=== PATIENT | female | born 1945 | race American Indian/Alaskan Native ===

== ENCOUNTER 2021-01-09 20:11 | Emergency (ER) | payer MEDICARE, MEDICAID ==
--- NOTE | 2021-01-09 21:13 | XRay Report ---
CHEST 2 VIEWS INDICATION / CLINICAL INFORMATION: cough. COMPARISON: 06/28/2010 FINDINGS: SUPPORT DEVICES: Right-sided port device with central venous catheter tip overlying the proximal righ t atrium. HEART / MEDIASTINUM: Opacity overlying the right hilar region with retraction of the right mainstem b ronchus and trachea towards the right upper lung. Cardiac silhouette demonstrates no significant abno rmality. LUNGS / PLEURA: 3-4 cm nodular mass overlying the right middle lobe. Left lung appears clear. No evid ence of acute airspace disease. No pneumothorax. ADDITIONAL FINDINGS: No significant additional findings. IMPRESSION: 1. 3-4 cm nodular mass in the right middle lobe concerning for neoplasm given this patient's provided clinical history. 2. Right hilar opacity and retraction of the distal trachea/right mainstem bronchus. This could be se condary to hilar metastatic disease or prior treatment. Consider further evaluation with CT for the a forementioned abnormalities. 3. No evidence of acute airspace disease. Signer Name: Elliot Gerber MD Signed: 01/09/2021 9:08 PM Workstation Name: [id number]
[2021-01-09] MEDS ORDERED: ACETAMINOPHEN 325 MG TAB PO ONE (23:52)
--- NOTE | 2021-01-09 23:57 | Emergency Department Report ---
ED General Adult HPI - General Chief complaint: Upper Respiratory Infection Stated complaint: COUGH; HURTS WHEN SHE COUGHS; FALL PUI?: No Time Seen by Provider: 01/09/21 23:34 Source: patient, RN notes reviewed Mode of arrival: Ambulatory Limitations: No Limitations - History of Present Illness Initial comments: The patient was evaluated in the emergency department for symptoms described in the history of present illness. He/she was evaluated in the context of the global COVID-19 pandemic, which necessitated consideration that the patient might be at risk for infection with the virus that causes COVID-19. Institutional protocols and algorithms that pertain to the evaluation of patients at risk for COVID-19 are in a state of rapid change based on information released by regulatory bodies including the CDC and federal and state organizations. These policies and algorithms were followed during the patient's care in the emergency department. Please note that these policies, procedures and recommendations changed on a rapid basis. Primary care doctor: Jaylyn Torres Oncology: [facility] – [place] Past medical history: Hypertension, arthritis, lung cancer diagnosed 5 years ago, has completed treatment, not currently on chemotherapy, radiation therapy, reports having had a PET scan with her outpatient oncologist a few weeks ago, which patient reports was "negative." The patient is a 75-year-old female. She is not known to myself previously. She presents to the ER today with a complaint of seeking reassurance to make sure she does not have pneumonia. The patient has been having a dry cough for the past few weeks. She denies headache, neck pain, new/different shortness of breath, vomiting, diaphoresis. The patient also denies fever, loss of taste and smell, and has received her first round of the Pfizer Covid vaccination within the past 24 hours. She has chest wall pain with coughing. Incidentally, patient reports having had a mechanical fall at home a few weeks ago, did not hit her head, saw her primary care doctor as an outpatient, had outpatient x-rays of her back which were "negative", and she was referred to outpatient orthopedics for "pain shots." The patient was prescribed "cough syrup" by her oncologist. -: week(s) Location: chest (Chest wall pain with cough), back (Lower back pain status post fall) Radiation: non-radiation Quality: aching Consistency: intermittent Improves with: rest Worsens with: movement ED Review of Systems ROS: Stated complaint: COUGH; HURTS WHEN SHE COUGHS; FALL Other details as noted in HPI Constitutional: other (Denies loss of taste and smell). denies: fever, malaise, weakness ENT: denies: epistaxis Respiratory: cough. denies: shortness of breath Cardiovascular: other (Chest wall pain with cough) Gastrointestinal: denies: nausea, vomiting, hematemesis, melena, hematochezia Genitourinary: denies: dysuria Musculoskeletal: back pain, arthralgia, myalgia Neurological: denies: weakness, numbness, paresthesias Hematological/Lymphatic: denies: easy bleeding ED Past Medical Hx - Past Medical History Previous Medical History?: Yes Hx Hypertension: Yes Hx of Cancer: Yes (lung cancer) - Surgical History Past Surgical History?: Yes Hx Breast Surgery: Yes (lumps removed,) Additional Surgical History: Colon hysterectomy, gall bladder, wrist surgery. - Social History Smoking Status: Never Smoker Substance Use Type: None ED Physical Exam - General Limitations: No Limitations General appearance: alert, in no apparent distress - Head Head exam: Present: atraumatic, normocephalic - Eye Eye exam: Present: normal appearance, EOMI. Absent: nystagmus - ENT ENT exam: Present: normal exam, normal orophraynx, mucous membranes moist, normal external ear exam - Neck Neck exam: Present: normal inspection, full ROM. Absent: tenderness, meningismus - Respiratory Respiratory exam: Present: normal lung sounds bilaterally, chest wall tenderness. Absent: respiratory distress, wheezes, rales, rhonchi, stridor - Cardiovascular Cardiovascular Exam: Present: regular rate, normal rhythm, normal heart sounds. Absent: bradycardia, tachycardia, irregular rhythm, systolic murmur, diastolic murmur, rubs, gallop - GI/Abdominal GI/Abdominal exam: Present: soft. Absent: distended, tenderness, guarding, rebound, rigid, pulsatile mass - Extremities Exam Extremities exam: Present: normal inspection, full ROM, other (2+ pulses noted in the bilateral upper and lower extremities. There is no palpable cord. negative Homans sign. Muscular compartments are soft. The pelvis is stable.). Absent: pedal edema, calf tenderness - Back Exam Back exam: Present: normal inspection, paraspinal tenderness. Absent: tenderness, CVA tenderness (R), CVA tenderness (L), muscle spasm, vertebral tenderness - Neurological Exam Neurological exam: Present: alert, oriented X3, other (No facial droop. Tongue midline. Extraocular movements intact bilaterally. Facial sensation intact to light touch in V1, V2, V3 distribution bilaterally. 5 and a 5 strength in 4 extremities. Sensation intact to light touch in 4 extremities.). Absent: motor sensory deficit - Psychiatric Psychiatric exam: Present: normal affect, normal mood - Skin Skin exam: Present: warm, dry, intact, normal color. Absent: rash ED Course Vital Signs 01/09/21 20:20 Temperature 99.5 F Pulse Rate 103 H Respiratory 18 Rate Blood Pressure 133/93 O2 Sat by Pulse 96 Oximetry - Pulse Oximetry Interpretation Digit-Finger Initial Pulse Oximetry Readin O2 Sat by Pulse Oximetry: 99 Actions Taken: none ED Medical Decision Making - Lab Data Vital Signs 01/09/21 20:20 Temperature 99.5 F Pulse Rate 103 H Respiratory 18 Rate Blood Pressure 133/93 O2 Sat by Pulse 96 Oximetry - EKG Data -: EKG Interpreted by Or EKG shows normal: sinus rhythm Rate: normal - EKG Data When compared to previous EKG there are: previous EKG unavailable 01/09/21 23:59 There is no prior EKG available for interpretation. Time of interpretation: 23: 57 Sinus rhythm, left axis deviation, 78 bpm. Left anterior fascicular block. Intervals within normal limits. This is not a STEMI. - Radiology Data Radiology results: report reviewed, image reviewed CHEST 2 VIEWS INDICATION / CLINICAL INFORMATION: cough. COMPARISON: 06/28/2010 FINDINGS: SUPPORT DEVICES: Right-sided port device with central venous catheter tip overlying the proximal right atrium. HEART / MEDIASTINUM: Opacity overlying the right hilar region with retraction of the right mainstem bronchus and trachea towards the right upper lung. Cardiac silhouette demonstrates no significant abnormality. LUNGS / PLEURA: 3-4 cm nodular mass overlying the right middle lobe. Left lung appears clear. No evidence of acute airspace disease. No pneumothorax. ADDITIONAL FINDINGS: No significant additional findings. IMPRESSION: 1. 3-4 cm nodular mass in the right middle lobe concerning for neoplasm given this patient's provided clinical history. 2. Right hilar opacity and retraction of the distal trachea/right mainstem bronchus. This could be secondary to hilar metastatic disease or prior treatment. Consider further evaluation with CT for the aforementioned abnormalities. 3. No evidence of acute airspace disease. Signer Name: Elliot Gerber MD Signed: 01/09/2021 8:08 PM Workstation Name: [id number] - Medical Decision Making Differential diagnosis, including but not limited to: Costochondritis, pneumonia, lung cancer, general medical evaluation, history of fall, sequelae of fall Assessment and plan: 75-year-old female, with resolved tachycardia, who is not c urrently tachycardic, tachypneic or hypoxic, who in spite of her history of lung cancer which we appreciate, denies acute DVT and pulmonary embolism risk factors, who presents to the ER with a complaint of cough for a few weeks, essentially seeking reassurance that she does not have pneumonia. She denies loss of taste and smell, reportedly got her Covid vaccination within the past 24 hours, denies other typical Covid symptomatology. X-ray was obtained prior to my personal evaluation, does not demonstrate signs of pneumonia, however, it does demonstrate signs of pulmonary malignancy. Patient counseled on need to follow-up with outpatient primary care doctor or her oncologist for further outpatient evaluation and management, to ascertain whether or not her pulmonary malignancy has returned, to see if she requires treatment. She had a mechanical fall a few weeks ago, has already seen her primary care doctor for this, reportedly had negative outpatient x-rays in the clinic, and is going to follow- up with an orthopedist. Patient counseled on the natural history of falls, mechanical back pain, and costochondritis. She is currently afebrile, with reassuring vital signs, appears to be resting comfortably, and has no indication of acute neurologic deficit, or an acute decompensated medical condition. EKG reviewed and appreciated. Is not consistent with a STEMI. Patient medically suitable at this time for outpatient follow-up. Return precautions are reviewed tachycardia is resolved at the time of discharge, resting heart rate 78 bpm. Critical care attestation.: If time is entered above; I have spent that time in minutes in the direct care of this critically ill patient, excluding procedure time. ED Disposition Clinical Impression: Chest wall pain, Cough, History of lung cancer, History of fall, Encounter for medical screening examination Lower back pain Qualifiers: Chronicity: chronic Back pain laterality: bilateral Sciatica presence: without sciatica Qualified Code(s): M54.5 - Low back pain; G89.29 - Other chronic pain Disposition: DC-01 TO HOME OR SELFCARE Is pt being admited?: No Does the pt Need Aspirin: No Condition: Good Instructions: Chest Pain (ED) Additional Instructions: Rest, avoid heavy lifting, and strenuous physical activities. Patient may take ibuprofen, 400 mg by mouth, with food, every 6 hours as needed for pain, alternating with acetaminophen, 500 mg by mouth, every 4-6 hours as needed for pain, maximum daily dose of acetaminophen/Tylenol to not exceed 3 g per 24 hours. Alternate ice packs and heat packs as needed to areas of physical pain on body. Follow-up with your primary care doctor or oncologist within the next week. X- ray of the chest suggested the presence of a lung cancer/neoplasm. It is very important to follow-up with your outpatient primary care doctor or oncologist to exclude recurrent cancer, tumor, malignancy. Pain typically gets worse before gets better after mechanical fall. Therefore, please follow-up with your outpatient primary care doctor or outpatient orthopedist within the next week. Patient may benefit from physical therapy, rest, ice, compression, elevation. Please return to the emergency room right away with new pain, worsened pain, migration of pain, projectile vomiting, change in mental status, confusion, inability tolerate liquid feeds, new, worsened or different symptoms not present on the initial emergency room evaluation. Referrals: [facility] [Other] - 3-5 Days efra, cancer centers of [Other] - 3-5 Days
[2021-01-10] VITALS: BP 127/66
== END 2021-01-10 00:11 | disposition home or self-care (01) ==
LOC: ED 20:11
DX: R07.89 Other chest pain (principal); M54.5 Low back pain; R05 Cough; I10 Essential (primary) hypertension; Z00.00 Encounter for general adult medical examination without abnormal findings; Z85.118 Personal history of other malignant neoplasm of bronchus and lung; Z91.81 History of falling; Z98.890 Other specified postprocedural states
CPT/HCPCS: 71046; 93005

== ENCOUNTER 2021-07-26 05:44 | Inpatient (IN) | payer MEDICARE ==
--- NOTE | 2021-07-26 07:24 | Emergency Department Report ---
Blank Doc - Documentation Documentation: This is a 75-year-old female that presents with chest tightness and shortness of breath. 1- This is a initial triage assessment/medical screening only. Full assessment and work-up will be completed once the patient is in proper hospital gown, ED bed and in a private room setting. This initial assessment/diagnostic orders/clinical plan/ treatment(s) is/are subject to change based on pt's health status, clinical progression and re-assessment by fellow clinical providers in the ED. Further treatment and workup at subsequent clinical providers discretion. Patient/guardians urged not to elope from ED as their condition may be serious if not clinically assessed and managed. 2-cardiac work-up The patient was evaluated in the emergency department for symptoms described in the history of present illness. He/she was evaluated in the context of the global COVID-19 pandemic, which necessitated consideration that the patient might be at risk for infection with the virus that causes COVID-19. Institutional protocols and algorithms that pertain to the evaluation of humberto ents at risk for COVID-19 are in a state of rapid change based on information released by regulatory bodies including the CDC and federal and state organizations. These policies and algorithms were followed during the patient's care in the emergency department. Please note that these policies, procedures and recommendations changed on a rapid basis.
[2021-07-26 07:38] LABS: Basophils % (Auto) 0.2 % (0.0-1.8); Hematocrit 41.2 % (30.3-42.9); Hemoglobin 13.6 gm/dl (10.1-14.3); Lymphocytes # (Auto) 1.1 K/mm3 (1.2-5.4); Lymphocytes % (Auto) 9.9 % (13.4-35.0); Mean Corpuscular HGB Conc 33 % (30-34); Mean Corpuscular Volume 84 fl (79-97); Monocytes # (Auto) 0.5 K/mm3 (0.0-0.8); Monocytes % (Auto) 4.4 % (0.0-7.3); Platelet Count 257 K/mm3 (140-440); Red Blood Count 4.92 M/mm3 (3.65-5.03); Red Cell Distribution Width 18.4 % (13.2-15.2)
[2021-07-26 07:49] LABS: INR 1.29 (0.87-1.13); Partial Thromboplastin Time 31.4 Sec. (24.2-36.6)
[2021-07-26 08:02] LABS: Alanine Aminotransferase 11 units/L (7-56); Albumin 3.2 g/dL (3.9-5); Blood Urea Nitrogen 20 mg/dL (7-17); Calcium 9.3 mg/dL (8.4-10.2); Hemolysis Index 11
[2021-07-26 08:04] LABS: BUN/Creatinine Ratio 33
--- NOTE | 2021-07-26 08:41 | XRay Report ---
CHEST 2 VIEWS INDICATION: Chest Pain. COMPARISON: 01/09/2021 FINDINGS: Support devices: Right [id number] remains in adequate position. Heart: Partial right pneumonectomy changes are suspected. Right suprahilar opacity and right middle l obe opacity appear unchanged. This could represent mass and adenopathy. The left lung remains general ly clear. No large pleural effusion or pneumothorax. Lungs/pleura: No acute air space or interstitial disease. No pneumothorax. Additional findings: None. IMPRESSION: No overwhelming change is suggested since 01/09/2021 exam. Partial right pneumonectomy changes with rig ht suprahilar and right middle lobe opacities are again noted and not significantly changed. If furth er evaluation is needed, CT chest with contrast could be obtained. Signer Name: Terry West Jr, MD Signed: 07/26/2021 8:37 AM Workstation Name: [id number]
--- NOTE | 2021-07-26 10:35 | Cat Scan Report ---
CTA CHEST WITH CONTRAST INDICATION : SOB, CANCER. TECHNIQUE: Axial imaging performed through the chest, with contrast bolus timing set to maximize opa cification of the pulmonary arteries. Sagittal and coronal reformatted images. 3-plane MIP reformatte d images were obtained. All CT scans at this location are performed using CT dose reduction for ALAR A by means of automated exposure control. Omnipaque 350 100 mL of intravenous contrast administered. COMPARISON: No previous CT chest. Correlation is made with recent chest x-rays FINDINGS: Bolus: Contrast bolus timing is adequate. PTE: No filling defect is present to suggest PTE. Mediastinum: Heart size is within normal limits. There is mild dilatation of the ascending aorta up to 3.8 cm. No obvious pathologic mediastinal adenopathy. Lungs: Partial right pneumonectomy changes are suspected, correlate with history. There is a necroti c appearing mass in the right midlung measuring up to 4.4 cm in diameter. There are also numerous tin y and small nodular densities scattered throughout both lungs consistent with metastatic disease. The re is moderate peribronchial nodularity in the right lung which probably represents lymphangitic spre ad of cancer. Opacification/consolidation in the right suprahilar region measuring up to 5.5 x 3.2 cm in axial plane probably represents atelectasis. Similar appearing area of opacification in the media l right lower lobe measures 5.2 x 4.0 cm. Small right pleural effusion layers posteriorly. No pneumot horax. Bones: Kyphoplasty changes are identified at T12. The remaining bony structures are intact. No obvio us suspicious bony lesion. Upper abdomen: Limited imaging of the upper abdomen shows nothing acute. IMPRESSION: No pulmonary embolus is detected. Partial right pneumonectomy changes are suspected. A 4.4 cm necrotic appearing mass is identified in the right midlung. There are also numerous bilateral nodular densities scattered throughout both lung s consistent with metastatic disease as described. Focal areas of atelectasis or infiltrate in the right upper lobe and right lower lobe as described. Small right pleural effusion. Signer Name: Terry West Jr, MD Signed: 07/26/2021 10:30 AM Workstation Name: [id number]
--- NOTE | 2021-07-26 10:55 | Emergency Department Report ---
ED Shortness of Breath HPI - General Chief Complaint: Dyspnea/Respdistress Stated Complaint: SEE Time Seen by Provider: 07/26/21 07:18 Source: patient Mode of arrival: Ambulatory Limitations: No Limitations - History of Present Illness Initial Comments: 75-year-old female with a past medical history of metastatic cancer and hypertension presents to the hospital with complaints of shortness of breath x2 months. Patient states she has good and bad days. She had a bad spell this morning but feels fine currently. O2 saturation 100% on room air. Patient has a history of colon cancer with mets and family is trying to set her up with hospice as per triage. Patient denies any pain currently. Patient states she receives chemotherapy treatment at home. She is alert and oriented x3. She ambulates with a walker at her baseline Daughter Yony can be reached at [phone] - Related Data Allergies Allergy/AdvReac Type Severity Reaction Status Date / Time No Known Allergies Allergy Unverified 07/26/21 05:55 ED Review of Systems ROS: Stated complaint: SEE Other details as noted in HPI Comment: All other systems reviewed and negative ED Past Medical Hx - Past Medical History Previous Medical History?: Yes Hx Hypertension: Yes Hx of Cancer: Yes - Surgical History Past Surgical History?: Yes Hx Breast Surgery: Yes (lumps removed,) Additional Surgical History: Colon hysterectomy, gall bladder, wrist surgery. - Social History Smoking Status: Unknown if ever smoked ED Physical Exam - General Limitations: No Limitations - Other Other exam information: General: No acute distress Head: Atraumatic Eyes: normal appearance ENT: Moist mucous membranes Neck: Normal appearance, no midline tenderness Chest: Clear to auscultation bilaterally CV: Regular rate and rhythm Abdomen: Soft, normal bowel sounds, nontender, nondistended, no rebound or guarding Back: Normal inspection Extremity: Normal inspection, full range of motion, no calf tenderness or leg edema Neuro: Alert O x 3, no facial asymmetry, speech clear, no gross motor sensory deficit Psych: Appropriate behavior Skin: No rash ED Course Vital Signs 07/26/21 07/26/21 07/26/21 05:57 09:07 09:15 Temperature 97.3 F L Pulse Rate 88 89 88 Respiratory 18 21 20 Rate Blood Pressure 100/67 125/84 O2 Sat by Pulse 100 98 99 Oximetry 07/26/21 07/26/21 07/26/21 09:23 09:31 09:45 Temperature Pulse Rate 106 H 85 Respiratory 18 15 18 Rate Blood Pressure 125/84 119/85 O2 Sat by Pulse 99 99 100 Oximetry 07/26/21 07/26/21 07/26/21 10:00 10:15 10:31 Temperature Pulse Rate 92 H 83 82 Respiratory 19 20 18 Rate Blood Pressure 119/85 119/85 119/85 O2 Sat by Pulse 100 100 100 Oximetry 07/26/21 07/26/21 07/26/21 10:45 11:01 11:15 Temperature Pulse Rate 82 80 96 H Respiratory 17 17 15 Rate Blood Pressure 107/77 107/77 109/78 O2 Sat by Pulse 100 100 100 Oximetry 07/26/21 11:31 Temperature Pulse Rate 88 Respiratory 14 Rate Blood Pressure 109/78 O2 Sat by Pulse 100 Oximetry - Reevaluation(s) Reevaluation #1: 07/26/21 11:01 Case discussed with patient's daughter Ethel. She states patient is still rec eiving chemotherapy every 2 weeks and daily pills at home 3 in a.m. and 3 in the PM. Patient has been short of breath the last 2 months but this morning she got extremely winded when she walks to the bathroom. Family is having difficulty caring for the patient and have to carry her up and down the stairs due decreasing physical ability and shortness of breath. She is not sure that patient requires hospice but is also inquiring about alf placement for care assistance. Patient has an appointment with her development professional in [place] today scheduled for 1 PM due to respiratory symptoms. Patient apparently has an appointment development professional today because she has had the Holter monitor because of some abnormality that was noted with a heart. Patient's development professional is located in [place] 07/26/21 11:24 Daughter updated that patient will be admitted to the hospital. Denies a previous history of A. fib 07/26/21 11:40 - Consultations Consultation #1: 07/26/21 11:59 Patient seen at the bedside by cardiology Dr. Oliveira will start pt on beta- shabbir, Eliquis. See consult note ED Medical Decision Making - Lab Data Result diagrams: 07/26/21 07:24 07/26/21 07:24 Lab Results 07/26/21 07/26/21 07/26/21 Range/Units 07:24 07:24 07:24 WBC 11.3 H (4.5-11.0) K/mm3 RBC 4.92 (3.65-5.03) M/mm3 Hgb 13.6 (10.1-14.3) gm/dl Hct 41.2 (30.3-42.9) % MCV 84 (79-97) fl MCH 28 (28-32) pg MCHC 33 (30-34) % RDW 18.4 H (13.2-15.2) % Plt Count 257 (140-440) K/mm3 Lymph % (Auto) 9.9 L (13.4-35.0) % [place] % (Auto) 4.4 (0.0-7.3) % Eos % (Auto) 0.0 (0.0-4.3) % Baso % (Auto) 0.2 (0.0-1.8) % Lymph # (Auto) 1.1 L (1.2-5.4) K/mm3 [place] # (Auto) 0.5 (0.0-0.8) K/mm3 Eos # (Auto) 0.0 (0.0-0.4) K/mm3 Baso # (Auto) 0.0 (0.0-0.1) K/mm3 Seg Neutrophils % 85.5 H (40.0-70.0) % Seg Neutrophils # 9.6 H (1.8-7.7) K/mm3 PT 16.6 H (12.2-14.9) Sec. INR 1.29 H (0.87-1.13) APTT 31.4 (24.2-36.6) Sec. Sodium 131 L (137-145) mmol/L Potassium 3.4 L (3.6-5.0) mmol/L Chloride 90.1 L (98-107) mmol/L Carbon Dioxide 22 (22-30) mmol/L Anion Gap 22 mmol/L BUN 20 H (7-17) mg/dL Creatinine 0.6 (0.6-1.2) mg/dL Estimated GFR > 60 ml/min BUN/Creatinine Ratio 33 % Glucose 132 H (65-100) mg/dL Calcium 9.3 (8.4-10.2) mg/dL Magnesium 1.90 (1.7-2.3) mg/dL Total Bilirubin 1.10 (0.1-1.2) mg/dL AST 44 H (5-40) units/L ALT 11 (7-56) units/L Alkaline Phosphatase 136 H (35-129) units/L Troponin T < 0.010 (0.00-0.029) ng/mL Total Protein 7.5 (6.3-8.2) g/dL Albumin 3.2 L (3.9-5) g/dL Albumin/Globulin Ratio 0.7 % 07/26/21 Range/Units 10:17 WBC (4.5-11.0) K/mm3 RBC (3.65-5.03) M/mm3 Hgb (10.1-14.3) gm/dl Hct (30.3-42.9) % MCV (79-97) fl MCH (28-32) pg MCHC (30-34) % RDW (13.2-15.2) % Plt Count (140-440) K/mm3 Lymph % (Auto) (13.4-35.0) % [place] % (Auto) (0.0-7.3) % Eos % (Auto) (0.0-4.3) % Baso % (Auto) (0.0-1.8) % Lymph # (Auto) (1.2-5.4) K/mm3 [place] # (Auto) (0.0-0.8) K/mm3 Eos # (Auto) (0.0-0.4) K/mm3 Baso # (Auto) (0.0-0.1) K/mm3 Seg Neutrophils % (40.0-70.0) % Seg Neutrophils # (1.8-7.7) K/mm3 PT (12.2-14.9) Sec. INR (0.87-1.13) APTT (24.2-36.6) Sec. Sodium (137-145) mmol/L Potassium (3.6-5.0) mmol/L Chloride (98-107) mmol/L Carbon Dioxide (22-30) mmol/L Anion Gap mmol/L BUN (7-17) mg/dL Creatinine (0.6-1.2) mg/dL Estimated GFR ml/min BUN/Creatinine Ratio % Glucose (65-100) mg/dL Calcium (8.4-10.2) mg/dL Magnesium (1.7-2.3) mg/dL Total Bilirubin (0.1-1.2) mg/dL AST (5-40) units/L ALT (7-56) units/L Alkaline Phosphatase (35-129) units/L Troponin T < 0.010 (0.00-0.029) ng/mL Total Protein (6.3-8.2) g/dL Albumin (3.9-5) g/dL Albumin/Globulin Ratio % - EKG Data -: EKG Interpreted by Me (Atrial fibrillation) Rate: tachycardia (101) - EKG Data When compared to previous EKG there are: changes noted - Radiology Data Radiology results: report reviewed CHEST 2 VIEWS INDICATION: Chest Pain. COMPARISON: 01/09/2021 FINDINGS: Support devices: Right [id number] remains in adequate position. Heart: Partial right pneumonectomy changes are suspected. Right suprahilar opacity and right middle lobe opacity appear unchanged. This could represent mass and adenopathy. The left lung remains generally clear. No large pleural effusion or pneumothorax. Lungs/pleura: No acute air space or interstitial disease. No pneumothorax. Additional findings: None. IMPRESSION: No overwhelming change is suggested since 01/09/2021 exam. Partial right pneumonectomy changes with right suprahilar and right middle lobe opacities are again noted and not significantly changed. If further evaluation is needed, CT chest with contrast could be obtained. CTA CHEST WITH CONTRAST INDICATION : SOB, CANCER. TECHNIQUE: Axial imaging performed through the chest, with contrast bolus timing set to maximize opacification of the pulmonary arteries. Sagittal and coronal reformatted images. 3-plane MIP reformatted images were obtained. All CT scans at this location are performed using CT dose reduction for ALARA by means of automated exposure control. Omnipaque 350 100 mL of intravenous contrast administered. COMPARISON: No previous CT chest. Correlation is made with recent chest x-rays FINDINGS: Bolus: Contrast bolus timing is adequate. PTE: No filling defect is present to suggest PTE. Mediastinum: Heart size is within normal limits. There is mild dilatation of the ascending aorta up to 3.8 cm. No obvious pathologic mediastinal adenopathy. Lungs: Partial right pneumonectomy changes are suspected, correlate with history. There is a necrotic appearing mass in the right midlung measuring up to 4.4 cm in diameter. There are also numerous tiny and small nodular densities scattered throughout both lungs consistent with metastatic disease. There is moderate peribronchial nodularity in the right lung which probably represents lymphangitic spread of cancer. Opacification/consolidation in the right suprahilar region measuring up to 5.5 x 3.2 cm in axial plane probably represents atelectasis. Similar appearing area of opacification in the medial right lower lobe measures 5.2 x 4.0 cm. Small right pleural effusion layers posteriorly. No pneumothorax. Bones: Kyphoplasty changes are identified at T12. The remaining bony structures are intact. No obvious suspicious bony lesion. Upper abdomen: Limited imaging of the upper abdomen shows nothing acute. IMPRESSION: No pulmonary embolus is detected. Partial right pneumonectomy changes are suspected. A 4.4 cm necrotic appearing mass is identified in the right midlung. There are also numerous bilateral nodular densities scattered throughout both lungs consistent with metastatic disease as described. Focal areas of atelectasis or infiltrate in the right upper lobe and right lower lobe as described. Small right pleural effusion. - Medical Decision Making 75-year-old female with metastatic cancer and progressive worsening shortness of breath with acute exacerbations. EKG suggestive of atrial fibrillation with 2 beats of nonsustained V. tach. Patient be admitted to the hospital for new onset atrial fibrillation with cardiology consultation. CTA does not reveal any acute abnormality. Case management consulted regarding placement post discharge. po kcl orderd mild mild hypokalemia. Hospitalist informed for admission Critical Care Time: No Critical care attestation.: If time is entered above; I have spent that time in minutes in the direct care of this critically ill patient, excluding procedure time. ED Disposition Clinical Impression: New onset a-fib, NSVT (nonsustained ventricular tachycardia), Metastatic cancer, Dyspnea, Lung metastasis, Hypokalemia Disposition: ADMITTED INPATIENT Is pt being admited?: Yes Condition: Stable Time of Disposition: 11:39
[2021-07-26] MEDS ORDERED: POTASSIUM CHLORIDE ER 20 MEQ TAB PO ONE (10:57)
[2021-07-26] MEDS ORDERED: SODIUM CHLORIDE 0.9% 500 ML 500 ML IV ONE (11:10)
[2021-07-26] MEDS ORDERED: METOPROLOL TARTRATE 50 MG TAB PO SCH (12:02)
[2021-07-26] MEDS: METOPROLOL TARTRATE 25 MG TAB PO SCH ×2 (13:38→21:36)
[2021-07-26] MEDS: APIXABAN 5 MG TAB PO SCH ×2 (13:38→23:31)
--- NOTE | 2021-07-26 15:36 | Consultation ---
History of Present Illness Consult date: 07/26/21 Requesting physician: BONNIE JUAN Consult reason: other (afib) History of present illness: Patient is a 75 y/o female, previously unknown to our practice, with a PMHx of HTN and metastatic colon and lung cancer currently receiving chemotherapy with a chief complaint of SOB x 2 months. Per documentation patients family is attempting to set the patient up with hospice care. Per ED staff patient was wearing a holter monitor and found to be in new onset afib and brought to the hospital. Furthermore, patient reports SOB and fatigue. She denies chest pain or palpitations. She reports that at home she is able to walk using a walker but in this last month her SOB has decreased her ability to walk. Cardiology is consulted for Afib Past History Past Medical History: hypertension, other (lung cancer,colon cancer) Past Surgical History: hysterectomy, Other (pneumectomy) Social history: denies: smoking, alcohol abuse Medications and Allergies Allergies Allergy/AdvReac Type Severity Reaction Status Date / Time No Known Allergies Allergy Unverified 07/26/21 05:55 Active Meds: Active Medications Apixaban (Apixaban 5 Mg Tab) 5 mg PO Q12HR [facility]; Protocol Last Admin: 07/26/21 13:38 Dose: 5 mg Documented by: Metoprolol Tartrate (Metoprolol Tartrate 25 Mg Tab) 25 mg PO TID [facility] Last Admin: 07/26/21 13:38 Dose: 25 mg Documented by: Review of Systems Constitutional: fatigue, no weight loss, no weight gain, no fever, no chills Ears, nose, mouth and throat: no nasal congestion, no nasal discharge, no sinus pressure, no sinus pain Cardiovascular: shortness of breath, dyspnea on exertion, no chest pain, no orthopnea, no palpitations, no rapid/irregular heart beat Respiratory: shortness of breath, dyspnea on exertion, no cough, no cough with sputum, no excessive sputum, no hemoptysis Gastrointestinal: no abdominal pain, no nausea, no vomiting, no diarrhea Musculoskeletal: no neck stiffness, no neck pain, no shooting arm pain Integumentary: no rash, no pruritis, no redness Neurological: no head injury, no transient paralysis, no paralysis Psychiatric: no anxiety, no memory loss Endocrine: no cold intolerance, no heat intolerance Hematologic/Lymphatic: no easy bruising, no easy bleeding Physical Examination Vital Signs Temp Pulse Resp BP Pulse Ox 97.3 F L 88 18 100/67 100 07/26/21 05:57 07/26/21 05:57 07/26/21 05:57 07/26/21 05:57 07/26/21 05:57 General appearance: no acute distress HEENT: Positive: PERRL Cardiac: Positive: irregularly irregular Lungs: Positive: Decreased Breath Sounds Neuro: Positive: Grossly Intact Abdomen: Positive: Soft, Active Bowel Sounds Skin: Negative: Rash, Suspicious Lesions, Ulceration Extremities: Present: upper extr. pulses, lower extr. pulses. Absent: edema Results 07/26/21 07:24 07/26/21 07:24 Cardiac Enzymes 07/26/21 Range/Units 07:24 AST 44 H (5-40) units/L Coagulation 07/26/21 Range/Units 07:24 PT 16.6 H (12.2-14.9) Sec. INR 1.29 H (0.87-1.13) APTT 31.4 (24.2-36.6) Sec. CBC 07/26/21 Range/Units 07:24 WBC 11.3 H (4.5-11.0) K/mm3 RBC 4.92 (3.65-5.03) M/mm3 Hgb 13.6 (10.1-14.3) gm/dl Hct 41.2 (30.3-42.9) % Plt Count 257 (140-440) K/mm3 Lymph # (Auto) 1.1 L (1.2-5.4) K/mm3 [place] # (Auto) 0.5 (0.0-0.8) K/mm3 Eos # (Auto) 0.0 (0.0-0.4) K/mm3 Baso # (Auto) 0.0 (0.0-0.1) K/mm3 Comprehensive Metabolic Panel 07/26/21 Range/Units 07:24 Sodium 131 L (137-145) mmol/L Potassium 3.4 L (3.6-5.0) mmol/L Chloride 90.1 L (98-107) mmol/L Carbon Dioxide 22 (22-30) mmol/L BUN 20 H (7-17) mg/dL Creatinine 0.6 (0.6-1.2) mg/dL Glucose 132 H (65-100) mg/dL Calcium 9.3 (8.4-10.2) mg/dL AST 44 H (5-40) units/L ALT 11 (7-56) units/L Alkaline Phosphatase 136 H (35-129) units/L Total Protein 7.5 (6.3-8.2) g/dL Albumin 3.2 L (3.9-5) g/dL - Imaging and Cardiology Echo: pending EKG: report reviewed, image reviewed EKG interpretations - Telemetry EKG Rhythm: Atrial Fibrillation - EKG Supraventricular dysrhythmia: atrial fibrillation Ventricular dysrhythmias: ventricular premature com Assessment and Plan New onset Afib HTN * EKG shows afib rate 101 with PVCs. Troponin negative x 2. AMI ruled out * Metoprolol 25mg PO TID * Eliquis for anticoagulation * Echo pending Metastatic colon Cancer Metastatic Lung cancer s/p partial pneumectomy * Patient receives chemo at home and per documentation family is attempting to set up patient for Hospice SOB * Patient currently on NC * Management per primary team Hypoklemia * K+ being repleted Echo pending. Initiated Eliquis and metoprolol 25mg PO TID. BMP in AM Patient seen in conjunction with Dr. Oliveira who agrees with this plan of care. Will continue to follow. - Patient Problems (1) Malnutrition Current Visit: Yes Status: Acute (2) Colon cancer Current Visit: Yes Status: Acute (3) Hypokalemia Current Visit: Yes Status: Acute (4) Lung metastasis Current Visit: Yes Status: Acute (5) Metastatic cancer Current Visit: Yes Status: Acute (6) New onset a-fib Current Visit: Yes Status: Acute
[2021-07-26] MEDS ORDERED: ACETAMINOPHEN 325 MG TAB PO PRN (17:17)
[2021-07-26] MEDS ORDERED: METOCLOPRAMIDE 10 MG/2 ML INJ IV PRN (17:17)
[2021-07-26] MEDS ORDERED: HYDROmorphone 1 MG/1 ML INJ IV PRN (17:17)
[2021-07-26] MEDS ORDERED: oxyCODONE /ACETAMINOPHEN 5-325MG TAB PO PRN (17:17)
[2021-07-26] MEDS ORDERED: ONDANSETRON 4 MG/2 ML INJ IV PRN (17:17)
--- NOTE | 2021-07-26 17:17 | History and Physical Report ---
History of Present Illness Date of examination: 07/26/21 Date of admission: 07/26/21 11:40 Chief complaint: Palpitations since a.m. History of present illness: 75-year-old female with history of hypertension and colon cancer with metastasis currently receiving chemotherapy function for shortness of breath for 2 months and palpitations. Patient felt very weak this morning and recovered completely after couple of hours. Family is trying to set up hospice because of the colon cancer with metastasis. No chest pain. Palpitations present. No nausea vomiting or diarrhea. No diaphoresis. Patient is able to walk with a walker but in the last month shortness of breath is decreased able to to walk. Please evaluate new onset irregularity of the heart. Hence admission and treatment of the new onset atrial fibrillation. No fever or chills. - Past Medical History Previous Medical History?: Yes --Hypertension: Yes --Hx of Cancer: Yes - Surgical History --Past Surgical History?: Yes --Breast Surgery: Yes (lumps removed,) --Additional Surgical History: Colon hysterectomy, gall bladder, wrist surgery. -Family history Htn - Social History Smoking Status: Unknown if ever smoke Review of Systems ROS: Stated complaint: SEE Other details as noted in HPI Comment: All other systems reviewed and negative Past History Past Medical History: hypertension, other (lung cancer,colon cancer) Past Surgical History: hysterectomy, Other (pneumectomy) Social history: denies: smoking, alcohol abuse Medications and Allergies Allergies Allergy/AdvReac Type Severity Reaction Status Date / Time No Known Allergies Allergy Unverified 07/26/21 05:55 Home Medications Medication Instructions Recorded Confirmed Last Taken Type ALPRAZolam [Alprazolam] 0.25 mg PO QHS 07/26/21 07/26/21 07/25/21 History Atenolol [Tenormin] 50 mg PO DAILY 07/26/21 07/26/21 07/25/21 History Capecitabine [Xeloda] 1,500 mg PO BID 07/26/21 07/26/21 07/25/21 History DULoxetine [Cymbalta] 30 mg PO HS 07/26/21 07/26/21 07/25/21 History Famotidine [Acid-Pep] 20 mg PO DAILY 07/26/21 07/26/21 07/25/21 History Oxycodone HCl [oxyCODONE 20 MG/ML 5 mg PO Q4HR 07/26/21 07/26/21 07/25/21 History ORAL LIQ] Potassium Chloride [K-Dur] 10 meq PO QDAY 07/26/21 07/26/21 07/25/21 History Prochlorperazine Maleate 10 mg PO TID 07/26/21 07/26/21 07/25/21 History [Compazine] Active Meds: Active Medications Apixaban (Apixaban 5 Mg Tab) 5 mg PO Q12HR [facility]; Protocol Last Admin: 07/26/21 13:38 Dose: 5 mg Documented by: Metoprolol Tartrate (Metoprolol Tartrate 25 Mg Tab) 25 mg PO TID [facility] Last Admin: 07/26/21 13:38 Dose: 25 mg Documented by: Exam - Constitutional Vitals: Temp Pulse Resp BP Pulse Ox 97.3 F L 81 20 126/84 100 07/26/21 05:57 07/26/21 16:45 07/26/21 16:45 07/26/21 16:45 07/26/21 16:45 General appearance: Present: no acute distress, well-nourished - EENT Eyes: Present: PERRL ENT: hearing intact, clear oral mucosa - Neck Neck: Present: supple, normal ROM - Respiratory Respiratory effort: normal Respiratory: bilateral: CTA - Cardiovascular Heart rate: 104 Rhythm: irregularly irregular Heart Sounds: Present: S1 & S2. Absent: rub, click - Extremities Extremities: pulses symmetrical, No edema Peripheral Pulses: within normal limits - Abdominal General gastrointestinal: Present: soft, non-tender, non-distended, normal bowel sounds Female genitourinary: Present: normal - Rectal Rectal Exam: deferred - Integumentary Integumentary: Present: clear, warm, dry - Musculoskeletal Musculoskeletal: gait normal, strength equal bilaterally - Psychiatric Psychiatric: appropriate mood/affect, intact judgment & insight - Neurologic Neurologic: CNII-XII intact, moves all extremities - Allied Health Allied health notes reviewed: nursing, case management HEART Score - HEART Score History: Highly suspicious EKG: Non-specific Risk factors: 1-2 risk factors Troponin: Troponin T < 0.010 ng/mL (0.00-0.029) 07/26/21 10:17 Troponin: < normal limit - Critical Actions Critical Actions: 4-6 pts:12-16.6% risk of adverse cardiac event. Should be admitted Results - Labs CBC & Chem 7: 07/26/21 21:02 07/26/21 21:02 Labs: Laboratory Last Values WBC 11.3 K/mm3 (4.5-11.0) H 07/26/21 07:24 RBC 4.92 M/mm3 (3.65-5.03) 07/26/21 07:24 Hgb 13.6 gm/dl (10.1-14.3) 07/26/21 07:24 Hct 41.2 % (30.3-42.9) 07/26/21 07:24 MCV 84 fl (79-97) 07/26/21 07:24 MCH 28 pg (28-32) 07/26/21 07:24 MCHC 33 % (30-34) 07/26/21 07:24 RDW 18.4 % (13.2-15.2) H 07/26/21 07:24 Plt Count 257 K/mm3 (140-440) 07/26/21 07:24 Lymph % (Auto) 9.9 % (13.4-35.0) L 07/26/21 07:24 [place] % (Auto) 4.4 % (0.0-7.3) 07/26/21 07:24 Eos % (Auto) 0.0 % (0.0-4.3) 07/26/21 07:24 Baso % (Auto) 0.2 % (0.0-1.8) 07/26/21 07:24 Lymph # (Auto) 1.1 K/mm3 (1.2-5.4) L 07/26/21 07:24 [place] # (Auto) 0.5 K/mm3 (0.0-0.8) 07/26/21 07:24 Eos # (Auto) 0.0 K/mm3 (0.0-0.4) 07/26/21 07:24 Baso # (Auto) 0.0 K/mm3 (0.0-0.1) 07/26/21 07:24 Seg Neutrophils % 85.5 % (40.0-70.0) H 07/26/21 07:24 Seg Neutrophils # 9.6 K/mm3 (1.8-7.7) H 07/26/21 07:24 PT 16.6 Sec. (12.2-14.9) H 07/26/21 07:24 INR 1.29 (0.87-1.13) H 07/26/21 07:24 APTT 31.4 Sec. (24.2-36.6) 07/26/21 07:24 Sodium 131 mmol/L (137-145) L 07/26/21 07:24 Potassium 3.4 mmol/L (3.6-5.0) L 07/26/21 07:24 Chloride 90.1 mmol/L (98-107) L 07/26/21 07:24 Carbon Dioxide 22 mmol/L (22-30) 07/26/21 07:24 Anion Gap 22 mmol/L 07/26/21 07:24 BUN 20 mg/dL (7-17) H 07/26/21 07:24 Creatinine 0.6 mg/dL (0.6-1.2) 07/26/21 07:24 Estimated GFR > 60 ml/min 07/26/21 07:24 BUN/Creatinine Ratio 33 % 07/26/21 07:24 Glucose 132 mg/dL (65-100) H 07/26/21 07:24 Calcium 9.3 mg/dL (8.4-10.2) 07/26/21 07:24 Magnesium 1.90 mg/dL (1.7-2.3) 07/26/21 07:24 Total Bilirubin 1.10 mg/dL (0.1-1.2) 07/26/21 07:24 AST 44 units/L (5-40) H 07/26/21 07:24 ALT 11 units/L (7-56) 07/26/21 07:24 Alkaline Phosphatase 136 units/L (35-129) H 07/26/21 07:24 Troponin T < 0.010 ng/mL (0.00-0.029) 07/26/21 10:17 Total Protein 7.5 g/dL (6.3-8.2) 07/26/21 07:24 Albumin 3.2 g/dL (3.9-5) L 07/26/21 07:24 Albumin/Globulin Ratio 0.7 % 07/26/21 07:24 Short CBC 07/26/21 Range/Units 07:24 WBC 11.3 H (4.5-11.0) K/mm3 Hgb 13.6 (10.1-14.3) gm/dl Hct 41.2 (30.3-42.9) % Plt Count 257 (140-440) K/mm3 [facility] 07/26/21 07:24 Sodium 131 L Potassium 3.4 L Chloride 90.1 L Carbon Dioxide 22 BUN 20 H Creatinine 0.6 Glucose 132 H Calcium 9.3 Cardiac Enzymes 07/26/21 07/26/21 Range/Units 07:24 10:17 Troponin T < 0.010 < 0.010 (0.00-0.029) ng/mL Liver Function 07/26/21 Range/Units 07:24 Total Bilirubin 1.10 (0.1-1.2) mg/dL AST 44 H (5-40) units/L ALT 11 (7-56) units/L Alkaline Phosphatase 136 H (35-129) units/L Albumin 3.2 L (3.9-5) g/dL Short CBC 07/26/21 07/26/21 Range/Units 07:24 21:02 WBC 11.3 H 9.8 (4.5-11.0) K/mm3 Hgb 13.6 12.3 (10.1-14.3) gm/dl Hct 41.2 37.5 (30.3-42.9) % Plt Count 257 258 (140-440) K/mm3 [facility] 07/26/21 07/26/21 07:24 21:02 Sodium 131 L Potassium 3.4 L Chloride 90.1 L Carbon Dioxide 22 BUN 20 H Creatinine 0.6 0.5 L Glucose 132 H Calcium 9.3 Cardiac Enzymes 07/26/21 07/26/21 Range/Units 07:24 10:17 Troponin T < 0.010 < 0.010 (0.00-0.029) ng/mL Liver Function 07/26/21 Range/Units 07:24 Total Bilirubin 1.10 (0.1-1.2) mg/dL AST 44 H (5-40) units/L ALT 11 (7-56) units/L Alkaline Phosphatase 136 H (35-129) units/L Albumin 3.2 L (3.9-5) g/dL - Imaging and Cardiology EKG: report reviewed (Atrial fibrillation with RVR) Imaging and Cardiology: Chest x-ray Right [id number] remains in adequate position Partial right pneumonectomy changes with subcarinal and right middle lobe opacities are again noted and not significantly changed since 3 06/23/21. Chest CTA Partial right pneumonectomy changes are suspected if A 4.4 cm necrotic appearing mass is identified in the right midline It is also numerous bilateral nodular densities scattered throughout both lungs consistent with metastatic disease as described Focal areas of atelectasis or infiltrate in the right upper lobe and right lower lobe as described Assessment and Plan Advance Directives: Yes (Full code) VTE prophylaxis?: Chemical Plan of care discussed with patient/family: Yes - Patient Problems (1) Acute respiratory failure with hypoxia Current Visit: Yes Status: Acute Plan to address problem: Needs oxygen supplementation May need to discharge her on home oxygen (2) Atrial fibrillation with RVR Current Visit: Yes Status: Acute Plan to address problem: Patient initiated on metoprolol and Eliquis Cardiology consult requested Echocardiogram ordered for ejection fraction and valvular function and to rule out intra-atrial/ventricular thrombus (3) Colon cancer metastasized to multiple sites Current Visit: Yes Status: Chronic Plan to address problem: Patient is on chemotherapy Daughter wants hospice Colon cancer with metastasis to lung bilaterally Mostly on the right side with a necrotic mass and partial right pneumonectomy Request case management to arrange for hospice (4) Hypokalemia Current Visit: Yes Status: Acute Plan to address problem: Supplemented (5) Hyponatremia Current Visit: Yes Status: Acute Plan to address problem: IV normal saline for 12 hours and recheck sodium (6) Transaminitis Current Visit: Yes Status: Acute Plan to address problem: Possibly secondary to liver metastasis (7) Malnutrition Current Visit: Yes Status: Chronic Qualifiers: Protein-calorie malnutrition severity: moderate Plan to address problem: Malnutrition --dietary supplements initiated (8) DVT prophylaxis Current Visit: Yes Status: Acute Plan to address problem: On Eliquis and GI prophylaxis
[2021-07-26] MEDS ORDERED: SODIUM CHLORIDE 0.9% 1000 ML 1,000 ML IV SCH (17:30)
[2021-07-26 21:20] LABS: Hematocrit 37.5 % (30.3-42.9); Hemoglobin 12.3 gm/dl (10.1-14.3); Mean Corpuscular HGB Conc 33 % (30-34); Mean Corpuscular Volume 84 fl (79-97); Platelet Count 258 K/mm3 (140-440); Red Blood Count 4.47 M/mm3 (3.65-5.03); Red Cell Distribution Width 18.9 % (13.2-15.2)
[2021-07-26 21:32] LABS: INR 1.64 (0.87-1.13)
[2021-07-26 21:33] LABS: Partial Thromboplastin Time 37.4 Sec. (24.2-36.6)
[2021-07-26] MEDS: FAMOTIDINE 20 MG/2 ML INJ IV SCH (21:36)
[2021-07-27 06:43] LABS: Blood Urea Nitrogen 18 mg/dL (7-17); Calcium 8.6 mg/dL (8.4-10.2); Hemolysis Index 219
[2021-07-27 06:45] LABS: BUN/Creatinine Ratio 45
[2021-07-27] MEDS ORDERED: APIXABAN 5 MG TAB PO SCH (10:00)
[2021-07-27] MEDS ORDERED: ENOXAPARIN 40 MG/0.4 ML INJ SUB-Q SCH (10:00)
[2021-07-27 11:07] LABS: Hematocrit 37.4 % (30.3-42.9); Hemoglobin 12.6 gm/dl (10.1-14.3); Mean Corpuscular HGB Conc 34 % (30-34); Mean Corpuscular Volume 84 fl (79-97); Platelet Count 213 K/mm3 (140-440); Red Blood Count 4.48 M/mm3 (3.65-5.03); Red Cell Distribution Width 18.9 % (13.2-15.2)
[2021-07-27 11:19] LABS: INR 1.4 (0.87-1.13)
[2021-07-27 11:20] LABS: Partial Thromboplastin Time 37.1 Sec. (24.2-36.6)
[2021-07-27] MEDS: FAMOTIDINE 20 MG/2 ML INJ IV SCH (11:27)
[2021-07-27] MEDS: METOPROLOL TARTRATE 25 MG TAB PO SCH (11:28)
--- NOTE | 2021-07-27 12:04 | Progress Note ---
<SHAWN KHAN - Last Filed: 07/27/21 11:59> Assessment and Plan New onset Afib HTN * EKG shows afib rate 101 with PVCs. Troponin negative x 2. AMI ruled out * Metoprolol 25mg PO TID * Eliquis for anticoagulation * Echo 07/26/2021-EF 55%, right ventricular systolic function is normal left and right atrium not well visualized, aortic valve is calcified no aortic stenosis, technically difficult study. Metastatic colon Cancer Metastatic Lung cancer s/p partial pneumectomy * Patient receives chemo at home and per documentation family is attempting to set up patient for Hospice SOB * Patient currently on NC * Management per primary team Hypoklemia * K+ being repleted Normal EF on echo. Continue Eliquis. Decreased metoprolol 25mg PO BID. Patient is stable and may be discharged from a cardiac perspective Patient seen in conjunction with Dr. Oliveira who agrees with this plan of care. Will see as needed - Patient Problems (1) Malnutrition Current Visit: Yes Status: Chronic Qualifiers: Protein-calorie malnutrition severity: moderate (2) Colon cancer Current Visit: Yes Status: Acute (3) Hypokalemia Current Visit: Yes Status: Acute (4) Lung metastasis Current Visit: Yes Status: Acute (5) Metastatic cancer Current Visit: Yes Status: Acute (6) New onset a-fib Current Visit: Yes Status: Acute Subjective Date of service: 07/27/21 Principal diagnosis: Acute respiratroy failure, New onset AFib Interval history: Patient in bed no complaints Patient sinus 70s with PACs on monior Objective Vital Signs Temp Pulse Resp BP BP Pulse Ox 07/27/21 08:00 98.2 F 75 18 108/79 97 07/27/21 04:25 97.9 F 74 18 117/79 95 07/26/21 23:59 98.5 F 77 18 120/80 98 07/26/21 22:33 74 2 L 07/26/21 21:36 77 20 124/87 07/26/21 19:10 97.5 F L 16 124/87 07/26/21 17:18 96.1 F L 77 18 148/96 97 07/26/21 16:45 81 20 126/84 100 07/26/21 16:31 69 20 107/77 100 07/26/21 16:29 107/77 100 07/26/21 15:15 86 22 107/77 07/26/21 15:01 81 13 107/77 100 07/26/21 14:45 79 10 L 107/77 100 07/26/21 14:31 78 20 111/81 100 07/26/21 14:15 80 19 111/81 100 07/26/21 14:01 81 17 120/79 100 07/26/21 13:45 80 19 120/79 100 07/26/21 13:33 2 L 07/26/21 13:31 111/81 07/26/21 13:15 79 19 111/81 99 07/26/21 13:01 101 H 18 115/84 99 07/26/21 12:45 77 19 115/84 100 07/26/21 12:31 127 H 20 115/84 99 07/26/21 12:15 127 H 21 115/84 100 07/26/21 12:01 98 H 21 118/82 99 - Physical Examination General: No Apparent Distress HEENT: Positive: PERRL Neck: Positive: trachea midline Cardiac: Positive: Reg Rate and Rhythm Lungs: Positive: Decreased Breath Sounds Neuro: Positive: Grossly Intact Abdomen: Positive: Soft, Active Bowel Sounds Skin: Negative: Rash, Suspicious Lesions, Ulceration Extremities: Present: upper extr. pulses, lower extr. pulses. Absent: edema - Labs and Meds Coagulation 07/26/21 07/27/21 Range/Units 21:02 10:47 PT 20.0 H 17.8 H (12.2-14.9) Sec. INR 1.64 H 1.40 H (0.87-1.13) APTT 37.4 H 37.1 H (24.2-36.6) Sec. CBC 07/26/21 07/27/21 Range/Units 21:02 10:47 WBC 9.8 7.4 (4.5-11.0) K/mm3 RBC 4.47 4.48 (3.65-5.03) M/mm3 Hgb 12.3 12.6 (10.1-14.3) gm/dl Hct 37.5 37.4 (30.3-42.9) % Plt Count 258 213 (140-440) K/mm3 Comprehensive Metabolic Panel 07/26/21 07/27/21 07/27/21 Range/Units 21:02 05:18 10:47 Sodium 132 L (137-145) mmol/L Potassium 4.9 D (3.6-5.0) mmol/L Chloride 92.5 L (98-107) mmol/L Carbon Dioxide 25 (22-30) mmol/L BUN 18 H (7-17) mg/dL Creatinine 0.5 L 0.4 L 0.5 L (0.6-1.2) mg/dL Glucose 90 (65-100) mg/dL Calcium 8.6 (8.4-10.2) mg/dL - Imaging and Cardiology EKG: report reviewed (Atrial fibrillation with RVR) Echo: report reviewed - Telemetry EKG Rhythm: Sinus Rhythm - EKG Sinus rhythms and dysrhythmias: sinus rhythm Ventricular dysrhythmias: ventricular premature com <JUAN JOSÉ OLIVEIRA R - Last Filed: 07/27/21 12:56> Assessment and Plan new onsent afib now nsr, lopressor 25mg bid, given chads score of 2 cont elquis and followup with cardiology in [place] Objective Vital Signs Temp Pulse Resp BP BP Pulse Ox 07/27/21 08:00 98.2 F 75 18 108/79 97 07/27/21 04:25 97.9 F 74 18 117/79 95 07/26/21 23:59 98.5 F 77 18 120/80 98 07/26/21 22:33 74 2 L 07/26/21 21:36 77 20 124/87 07/26/21 19:10 97.5 F L 16 124/87 07/26/21 17:18 96.1 F L 77 18 148/96 97 07/26/21 16:45 81 20 126/84 100 07/26/21 16:31 69 20 107/77 07/26/21 16:29 107/77 100 07/26/21 15:15 86 22 107/77 07/26/21 15:01 81 13 107/77 07/26/21 14:45 79 10 L 107/77 07/26/21 14:31 78 20 111/81 100 07/26/21 14:15 80 19 111/81 100 07/26/21 14:01 81 17 120/79 100 07/26/21 13:45 80 19 120/79 100 07/26/21 13:33 2 L 07/26/21 13:31 111/81 07/26/21 13:15 79 19 111/81 99 07/26/21 13:01 101 H 18 115/84 99 - Labs and Meds Coagulation 07/26/21 07/27/21 Range/Units 21:02 10:47 PT 20.0 H 17.8 H (12.2-14.9) Sec. INR 1.64 H 1.40 H (0.87-1.13) APTT 37.4 H 37.1 H (24.2-36.6) Sec. CBC 07/26/21 07/27/21 Range/Units 21:02 10:47 WBC 9.8 7.4 (4.5-11.0) K/mm3 RBC 4.47 4.48 (3.65-5.03) M/mm3 Hgb 12.3 12.6 (10.1-14.3) gm/dl Hct 37.5 37.4 (30.3-42.9) % Plt Count 258 213 (140-440) K/mm3 Comprehensive Metabolic Panel 07/26/21 07/27/21 07/27/21 Range/Units 21:02 05:18 10:47 Sodium 132 L (137-145) mmol/L Potassium 4.9 D (3.6-5.0) mmol/L Chloride 92.5 L (98-107) mmol/L Carbon Dioxide 25 (22-30) mmol/L BUN 18 H (7-17) mg/dL Creatinine 0.5 L 0.4 L 0.5 L (0.6-1.2) mg/dL Glucose 90 (65-100) mg/dL Calcium 8.6 (8.4-10.2) mg/dL
--- NOTE | 2021-07-27 17:17 | Discharge Summary ---
Providers - Providers Date of Admission: 07/27/21 08:54 Date of discharge: 07/27/21 Attending physician: JANEEN PEREZ 07/26/21 11:08 Consult to Case Management [CONS] Urgent Services Needed at Discharge: Home Health Services Notified:: y 07/26/21 11:48 Consult to Physician [CONS] Urgent Comment: Consulting Provider: JUAN JOSÉ SHIN Physician Instructions: Reason For Exam: new onset afib, Primary care physician: KISS MIXER Hospitalization Condition: Stable Procedures: Echocardiogram Left ventricular systolic function is normal LV ejection fraction is 55% Hospital course: History of present illness: 75-year-old female with history of hypertension and colon cancer with metastasis currently receiving chemotherapy function for shortness of breath for 2 months and palpitations. Patient felt very weak this morning and recovered completely after couple of hours. Family is trying to set up hospice because of the colon cancer with metastasis. No chest pain. Palpitations present. No nausea vomiting or diarrhea. No diaphoresis. Patient is able to walk with a walker but in the last month shortness of breath is decreased able to to walk. Please evaluate new onset irregularity of the heart. Hence admission and treatment of the new onset atrial fibrillation. No fever or chills. Chest x-ray Right Ekcwvr-[id number]-Ncde remains in adequate position Partial right pneumonectomy changes with subcarinal and right middle lobe opacities are again noted and not significantly changed since 3 06/23/21. Chest CTA Partial right pneumonectomy changes are suspected if A 4.4 cm necrotic appearing mass is identified in the right midline It is also numerous bilateral nodular densities scattered throughout both lungs consistent with metastatic disease as described Focal areas of atelectasis or infiltrate in the right upper lobe and right lower lobe as described Assessment and Plan Advance Directives: Yes (Full code) VTE prophylaxis?: Chemical Plan of care discussed with patient/family: Yes - Patient Problems (1) Acute respiratory failure with hypoxia Current Visit: Yes Status: Acute Plan to address problem: Improved (2) Atrial fibrillation with RVR Current Visit: Yes Status: Acute Plan to address problem: Rate controlled Patient on Eliquis Okay to discharge from cardiology point of view Echocardiogram reviewed Ejection fraction 50 to 55% (3) Colon cancer metastasized to multiple sites Current Visit: Yes Status: Chronic Plan to address problem: Follow-up with oncology as outpatient (4) Hypokalemia Current Visit: Yes Status: Acute Plan to address problem: Supplemented (5) Hyponatremia Current Visit: Yes Status: Acute Plan to address problem: Corrected (6) Transaminitis Current Visit: Yes Status: Acute Plan to address problem: Possibly secondary to liver metastasis (7) Malnutrition Current Visit: Yes Status: Chronic Qualifiers: Protein-calorie malnutrition severity: moderate Plan to address problem: Malnutrition --dietary supplements initiated (8) DVT prophylaxis Current Visit: Yes Status: Acute Plan to address problem: On Eliquis and GI prophylaxis Discharge planning issues Patient to be discharged today Patient wants to go home Hospice to be arranged from home Cardiology cleared for discharge on Eliquis for atrial fibrillation Disposition: HOME / SELF CARE / HOMELESS Final Discharge Diagnosis (Prints w/discharge instructions): A fib with rvr. Colon Ca with lung mets. Resp failure with hypoxia. Hypokalemia. Transaminitis Time spent for discharge: 33 minutes - Discharge Diagnoses (1) Acute respiratory failure with hypoxia Status: Acute (2) Atrial fibrillation with RVR Status: Acute (3) Colon cancer metastasized to multiple sites Status: Chronic (4) Hypokalemia Status: Acute (5) Hyponatremia Status: Acute (6) Transaminitis Status: Acute (7) Malnutrition Status: Chronic Qualifiers: Protein-calorie malnutrition severity: moderate (8) DVT prophylaxis Status: Acute Core Measure Documentation - Palliative Care Palliative Care/ Comfort Measures: Hospice Care - Core Measures Any of the following diagnoses?: none Exam - Constitutional Vitals: Temp Pulse Resp BP Pulse Ox 97.6 F 54 L 18 109/71 99 07/27/21 12:00 07/27/21 12:00 07/27/21 12:00 07/27/21 12:00 07/27/21 12:00 General appearance: Present: no acute distress, well-nourished - EENT Eyes: Present: PERRL ENT: hearing intact, clear oral mucosa - Neck Neck: Present: supple, normal ROM - Respiratory Respiratory effort: normal Respiratory: bilateral: CTA - Cardiovascular Heart rate: 78 Rhythm: irregularly irregular Heart Sounds: Present: S1 & S2. Absent: rub, click - Extremities Extremities: no ischemia, pulses intact, pulses symmetrical, No edema Peripheral Pulses: within normal limits - Abdominal General gastrointestinal: Present: soft, non-tender, non-distended, normal bowel sounds Female genitourinary: Present: normal - Integumentary Integumentary: Present: clear, warm, dry - Musculoskeletal Musculoskeletal: gait normal, strength equal bilaterally - Psychiatric Psychiatric: appropriate mood/affect, intact judgment & insight - Neurologic Neurologic: CNII-XII intact, moves all extremities - Allied Health Allied health notes reviewed: nursing, case management Plan Activity: no restrictions Diet: regular Follow up with: PRIMARY CARE, [Primary Care Provider] - 3-5 Days JUAN JOSÉ SHIN MD [Staff Physician] - 7 Days
--- NOTE | 2021-07-27 17:36 | Event Note ---
Date: 07/27/21 I tried calling the daughter and could not reach her. Call the phone number on the demographics. There is no voicemail.
[2021-07-27 18:57] VITALS: BP 116/72
[2021-07-27] MEDS ORDERED: METOPROLOL TARTRATE 25 MG TAB PO SCH (22:00)
--- NOTE | 2021-07-28 08:42 | Electrocardiograph Report ---
[facility] Test Date: 2021-07-26 Test Time: 11:14:40 Pat Name: BARBARA BOLDEN Department: Room: A480 Gender: F Showroom Manager: AYO : 1945 Requested By: ZEINA TAYLOR Order Number: [id number] Reading MD: Alen Oliveira Measurements Intervals [place] Rate: 101 P: ND: QRS: -68 QRSD: 99 T: 236 QT: 409 QTc: 530 Interpretive Statements Atrial fibrillation Ventricular tachycardia, unsustained Left anterior fascicular block nonspecific st-t No previous ECG available for comparison Electronically Signed On 07-28-2021 8:42:07 EDT by Alen Oliveira
== END 2021-07-27 20:37 | disposition hospice, home (50) | DRG 189 ==
LOC: ED 05:44 → 4A 11:40 → OBSVTOIN 07-27 08:54
PROVIDERS: ADMIT Internal Medicine; ATTEND Internal Medicine
DX: J96.01 Acute respiratory failure with hypoxia (principal); C78.00 Secondary malignant neoplasm of unspecified lung; I47.2 Ventricular tachycardia; C18.9 Malignant neoplasm of colon, unspecified; E87.1 Hypo-osmolality and hyponatremia; E44.0 Moderate protein-calorie malnutrition; Z68.1 Body mass index [BMI] 19.9 or less, adult; I48.91 Unspecified atrial fibrillation; I10 Essential (primary) hypertension; Z90.710 Acquired absence of both cervix and uterus; E87.6 Hypokalemia
CPT/HCPCS: 36415; 71046; 71275; 80048; 80053; 82565; 83735; 84484; 85025; 85027; 85610; 85730; 93005; 93306; G0378; J1170; J2405; J7040; Q9967